=== PATIENT | female | born 1980 | race Caucasian/White ===

== ENCOUNTER 2022-06-01 09:40 | Emergency (ER) | payer SELFPAY ==
[2022-06-01] MEDS ORDERED: Sodium Chloride 0.9% 10 ML Syringe FLUSH PRN (11:44)
[2022-06-01] MEDS ORDERED: Sodium Chloride 0.9% 2.5 ML Syringe FLUSH PRN (11:44)
[2022-06-01] MEDS ORDERED: Sodium Chloride 0.9% 1,000 ML IV STA (13:52)
[2022-06-01 14:04] LABS: CARBON DIOXIDE,CO2 25.6 mmol/L (21.0-32.0); POTASSIUM,K 3.5 mmol/L (3.5-5.1)
== END 2022-06-01 15:26 | disposition home or self-care (01) ==
LOC: MW.ED 09:40 → MERGE 09:40 → MW.ED 15:26
DX: O20.9 Hemorrhage in early pregnancy, unspecified (principal); O98.819 Other maternal infectious and parasitic diseases complicating pregnancy, unspecified trimester; B37.31 Acute candidiasis of vulva and vagina; Z88.0 Allergy status to penicillin
CPT/HCPCS: 36415; 76801; 80053; 81001; 84702; 85025; 86900; 86901; 87480; 87510; 87660; 96360; 99284; J3490; J7030

== ENCOUNTER 2023-01-15 05:01 | Inpatient (IN) | payer SELFPAY ==
[2023-01-15] MEDS ORDERED: Sodium Chloride 0.9% 10 ML Syringe FLUSH PRN (05:11)
[2023-01-15] MEDS ORDERED: Carboprost Tromethamine 250 MCG/1 mL Vial IM PRN (05:11)
[2023-01-15] MEDS ORDERED: Water For Irrigation,Sterile 1,000 ML Container IRR PRN (05:11)
[2023-01-15] MEDS ORDERED: Sodium Chloride 0.9% 2.5 ML Syringe FLUSH PRN (05:11)
[2023-01-15] MEDS ORDERED: Methylergonovine 0.2 MG/1 ML Amp IM PRN (05:11)
[2023-01-15] MEDS ORDERED: Terbutaline 1 MG/ML SDV SUBCUT PRN (05:11)
[2023-01-15] MEDS ORDERED: Sodium Chloride 0.9% 20 ML SDV IV PRN (05:11)
[2023-01-15] MEDS ORDERED: Ondansetron 4 MG/2 ML SDV IVPUSH PRN (05:11)
[2023-01-15] MEDS ORDERED: Lidocaine 1% 50 ML MDV INJECT PRN (05:11)
[2023-01-15] MEDS ORDERED: Misoprostol 200 MCG Tab PO PRN (05:11)
[2023-01-15] MEDS ORDERED: Tranexamic Acid 1,000 MG in Sodium Chloride 0.9% 100 ML IV PRN (05:11)
[2023-01-15] MEDS ORDERED: Oxytocin/0.9 % Sodium Chloride 30 UNIT/500 ML BAG IV SCH ×2 (05:15)
[2023-01-15] MEDS: Lactated Ringers 1,000 ML IV SCH ×4 (06:00→23:06)
[2023-01-15] MEDS ORDERED: Butorphanol 1 MG/ML SDV IVPUSH PRN (06:05)
[2023-01-15] MEDS ORDERED: Nalbuphine HCl 10 MG/ 1ML Amp IVPUSH PRN (06:08)
[2023-01-15 06:13] LABS: HEMATOCRIT 38.7 % (36.0-46.0); HEMOGLOBIN 12.7 g/dL (12.0-16.0); MEAN CORPUSCULAR HEMOGLOBIN 28.3 pg (27.0-32.0); MEAN CORPUSCULAR HGB CONC 32.8 g/dL (31.0-37.0); MEAN CORPUSCULAR VOLUME 86.4 fL (80.0-98.0); MEAN PLATELET VOLUME 12.4 fL (7.40-12.00); RED BLOOD CELL COUNT 4.48 M/uL (4.30-5.90); WHITE BLOOD CELL COUNT,WBC 11.47 K/uL (4.0-11.0)
[2023-01-15] MEDS: Vancomycin 2 GM in Sodium Chloride 0.9% 500 ML IV SCH ×3 (06:34→23:07)
[2023-01-15] MEDS ORDERED: diphenhydrAMINE 50 MG/ML SDV IVPUSH ONE ×2 (08:26→14:25)
[2023-01-15] MEDS ORDERED: Ropivacaine/PF 400 MG/200 ML PCA ONE (11:00)
[2023-01-15] MEDS ORDERED: Bupivacaine 0.5% 10 ML SDV ONE ×2 (11:00→21:10)
[2023-01-15] MEDS ORDERED: ePHEDrine 50 MG/ML SDV IVPUSH PRN ×2 (11:34)
[2023-01-15] MEDS ORDERED: Phenylephrine HCl 0.5 MG/5 ML AMP IVPUSH PRN (11:34)
[2023-01-15] MEDS ORDERED: Ropivacaine HCl/PF 400 MG in Premix Bag 1 BAG EPIDUR SCH (11:45)
[2023-01-15] MEDS ORDERED: Vancomycin 1.25 GM SDV ONE (22:20)
[2023-01-16] MEDS ORDERED: Lanolin 100% Cream 7 GM Tube TOP PRN (03:40)
[2023-01-16] MEDS ORDERED: Acetaminophen 500 MG Tab PO PRN (03:40)
[2023-01-16] MEDS ORDERED: Witch Hazel Medicated Pads 40/Jar TOP PRN (03:40)
[2023-01-16] MEDS ORDERED: Benzocaine/Menthol 20%-0.5% Spray 78 GM Cannister TOP PRN (03:40)
[2023-01-16] MEDS ORDERED: Bisacodyl 10 MG Supp RECTAL PRN (03:40)
[2023-01-16] MEDS ORDERED: oxyCODONE 5 MG Tab PO PRN (03:40)
[2023-01-16] MEDS ORDERED: Ibuprofen 400 MG Tab PO PRN (03:40)
[2023-01-16] MEDS ORDERED: Docusate Sodium 100 MG Cap PO PRN (03:40)
[2023-01-16 04:17] LABS: PH,UMBILICAL ARTERIAL 7.263 (7.18-7.38); PH,UMBILICAL VENOUS 7.255 (7.25-7.45)
[2023-01-16] MEDS: Ibuprofen 800 MG Tab PO PRN ×3 (05:11→19:32)
[2023-01-16] MEDS: Acetaminophen 500 MG Tab PO PRN ×3 (05:12→21:59)
[2023-01-17] MEDS: Ibuprofen 800 MG Tab PO PRN ×3 (03:14→19:36)
[2023-01-17 06:00] LABS: HEMATOCRIT 32.8 % (36.0-46.0); HEMOGLOBIN 10.4 g/dL (12.0-16.0)
[2023-01-17 06:14] LABS: CALCIUM 8.4 mg/dL (8.5-10.1); CARBON DIOXIDE,CO2 23.7 mmol/L (21.0-32.0); CREATININE 1.5 mg/dL (0.6-1.0); EST CRCL DRUG DOSING (CG) 35.45 mL/min; POTASSIUM,K 4.7 mmol/L (3.5-5.1)
[2023-01-17] MEDS: Acetaminophen 500 MG Tab PO PRN ×2 (09:27→19:37)
[2023-01-18] MEDS: Acetaminophen 500 MG Tab PO PRN ×2 (04:51→13:00)
== END 2023-01-18 17:20 | disposition home or self-care (01) | DRG 807 ==
LOC: MW.OBCHECK 05:01 → MW.OB 05:12 → OBSVTOIN 01-16 03:12 → MW.OB 01-16 05:34
PROVIDERS: ADMIT Obstetrics & Gynecology; ATTEND Obstetrics & Gynecology
PROC: 10E0XZZ Delivery of Products of Conception, External Approach (ICD-10-PCS; principal; 2023-01-16)
PROC: 0HQ9XZZ Repair Perineum Skin, External Approach (ICD-10-PCS; 2023-01-16)
PROC: 3E0R3BZ Introduction of Anesthetic Agent into Spinal Canal, Percutaneous Approach (ICD-10-PCS; 2023-01-16)
PROC: 00HU33Z Insertion of Infusion Device into Spinal Canal, Percutaneous Approach (ICD-10-PCS; 2023-01-16)
PROC: 3E033VJ Introduction of Other Hormone into Peripheral Vein, Percutaneous Approach (ICD-10-PCS; 2023-01-16)
DX: O24.424 Gestational diabetes mellitus in childbirth, insulin controlled (principal); Z37.0 Single live birth; O70.0 First degree perineal laceration during delivery; O99.824 Streptococcus B carrier state complicating childbirth; Z3A.38 38 weeks gestation of pregnancy; Z79.4 Long term (current) use of insulin; Z90.49 Acquired absence of other specified parts of digestive tract; Z87.891 Personal history of nicotine dependence; Z88.0 Allergy status to penicillin
CPT/HCPCS: 36415; 51702; 59025; 59409; 80048; 82803; 82947; 85014; 85018; 85027; 86592; 86850; 86900; 86901; A9270-GY; J1200; J2300; J2590; J2795; J3370; J3490; J7040; J7120

== ENCOUNTER 2024-09-06 16:19 | Emergency (ER) | payer OTHER ==
[2024-09-06] MEDS ORDERED: Sodium Chloride 0.9% 10 ML Syringe FLUSH PRN (17:48)
[2024-09-06 18:32] LABS: BASOPHILS ABSOLUTE AUTO 0.04 K/uL (0.00-0.20); BASOPHILS PERCENT AUTO 0.2 % (0.0-1.0); EOSINOPHILS ABSOLUTE AUTO 0.22 K/uL (0.00-0.45); EOSINOPHILS PERCENT AUTO 1.4 % (0.0-6.0); HEMOGLOBIN 12.9 g/dL (12.0-16.0); IMMATURE GRAN ABSOLUTE AUTO 0.15 K/uL (0.00-0.05); IMMATURE GRAN PERCENT AUTO 0.9 % (0.0-0.4); LYMPHOCYTES ABSOLUTE AUTO 3.98 K/uL (1.00-4.80); LYMPHOCYTES PERCENT AUTO 24.7 % (24.0-44.0); MEAN CORPUSCULAR HEMOGLOBIN 28.6 pg (28.0-32.0); MEAN CORPUSCULAR HGB CONC 33.9 g/dL (32.0-36.0); MEAN CORPUSCULAR VOLUME 84.3 fL (83.0-99.0); MEAN PLATELET VOLUME 13.2 fL (9.4-12.3); MONOCYTES ABSOLUTE AUTO 0.95 K/uL (0.00-0.80); MONOCYTES PERCENT AUTO 5.9 % (0.0-8.0); NEUTROPHILS PERCENT AUTO 66.9 % (41.0-71.0); PLATELET COUNT,PLT 247 K/uL (150-400); RED BLOOD CELL COUNT 4.51 M/uL (4.10-5.30); WHITE BLOOD CELL COUNT,WBC 16.14 K/uL (3.9-11.3)
== END 2024-09-06 20:37 | disposition home or self-care (01) ==
LOC: MW.ED 16:19
DX: O9A.212 Injury, poisoning and certain other consequences of external causes complicating pregnancy, second trimester (principal); S30.1XXA Contusion of abdominal wall, initial encounter; Z79.899 Other long term (current) drug therapy; Z88.0 Allergy status to penicillin; Z3A.20 20 weeks gestation of pregnancy; V43.52XA Car driver injured in collision with other type car in traffic accident, initial encounter; Y92.410 Unspecified street and highway as the place of occurrence of the external cause
CPT/HCPCS: 36415; 76700; 76700-26; 76805; 76805-26; 85025; 86900; 86901; 99283; 99284

== ENCOUNTER 2025-01-10 01:28 | Inpatient (IN) | payer OTHER ==
[2025-01-10] MEDS ORDERED: Terbutaline 1 MG/ML SDV SUBCUT PRN (01:37)
[2025-01-10] MEDS ORDERED: Carboprost Tromethamine 250 MCG/1 mL Vial IM PRN (01:37)
[2025-01-10] MEDS ORDERED: Water For Irrigation,Sterile 1,000 ML Container IRR PRN (01:37)
[2025-01-10] MEDS ORDERED: Sodium Chloride 0.9% 10 ML Syringe FLUSH PRN (01:37)
[2025-01-10] MEDS ORDERED: Sodium Chloride 0.9% 2.5 ML Syringe FLUSH PRN (01:37)
[2025-01-10] MEDS ORDERED: Ondansetron 4 MG/2 ML SDV IVPUSH PRN (01:37)
[2025-01-10] MEDS ORDERED: Misoprostol 25 MCG (1/4 of 100 MCG) Tab VAG PRN (01:37)
[2025-01-10] MEDS ORDERED: Butorphanol 1 MG/ML SDV IVPUSH PRN (01:37)
[2025-01-10] MEDS ORDERED: Oxytocin/0.9 % Sodium Chloride 30 UNIT/500 ML BAG IV SCH (01:45)
[2025-01-10 02:42] LABS: MEAN PLATELET VOLUME 12.3 fL (9.4-12.3); NRBC ABSOLUTE 0.00 K/uL (0.00-0.02); NRBC PERCENT 0.0 /100WBC (0.0-0.2); PLATELET COUNT,PLT 225 K/uL (150-400); RED BLOOD CELL COUNT 4.51 M/uL (4.10-5.30); WHITE BLOOD CELL COUNT,WBC 15.05 K/uL (3.9-11.3)
[2025-01-10] MEDS: Misoprostol 25 MCG (1/4 of 100 MCG) Tab VAG PRN (03:02)
[2025-01-10] MEDS: Misoprostol 25 MCG (1/4 of 100 MCG) Tab PO PRN (03:02)
[2025-01-10 03:09] LABS: A/G RATIO 0.7 (0.9-1.6); ALANINE AMINOTRANSFERASE,ALT 20 IU/L (14-63); ASPARTATE AMNIOTRANSFERASE,AST 18 IU/L (15-37); BILIRUBIN TOTAL 0.7 mg/dL (0.2-1.0); BLOOD UREA NITROGEN,BUN 10 mg/dL (7.0-18.0); CARBON DIOXIDE,CO2 24.2 mmol/L (21.0-32.0); CHLORIDE,CL 102 mmol/L (98-107); CREATININE 0.7 mg/dL (0.6-1.0); ESTIMATED GFR 110 mL/min (>60); GLUCOSE RANDOM 201 mg/dL (74-106); POTASSIUM,K 3.9 mmol/L (3.5-5.1); PROTEIN TOTAL,TP 6.6 g/dL (6.4-8.2); SODIUM,NA 137 mmol/L (136-145)
[2025-01-10] MEDS: Lactated Ringers 1,000 ML IV SCH (07:48)
[2025-01-10] MEDS: Oxytocin/0.9 % Sodium Chloride 30 UNIT/500 ML BAG IV SCH (07:49)
[2025-01-10] MEDS ORDERED: Ropivacaine HCl/PF 200 ML ONE (08:48)
[2025-01-10] MEDS ORDERED: dexmedeTOMIDine HCl 200 MCG/2 ML SDV ONE (08:48)
[2025-01-10] MEDS ORDERED: ePHEDrine 50 MG/ML SDV IVPUSH PRN (09:12)
[2025-01-10] MEDS ORDERED: dexmedeTOMIDine HCl 200 MCG/2 ML SDV EPIDUR SCH (09:15)
[2025-01-10] MEDS ORDERED: fentaNYL 100 MCG/2 ML SDV ONE ×2 (10:09→12:11)
[2025-01-10] MEDS: Ropivacaine HCl/PF 400 MG in Premix Bag 1 BAG EPIDUR SCH (12:16)
[2025-01-10 13:47] LABS: PH,UMBILICAL ARTERIAL 7.19 (7.18-7.38)
[2025-01-10 13:48] LABS: PH,UMBILICAL VENOUS 7.29 (7.25-7.45)
[2025-01-10] MEDS: Benzocaine/Menthol 20%-0.5% Spray 78 GM Cannister TOP PRN (14:02)
[2025-01-10] MEDS: Lanolin 100% Cream 7 GM Tube TOP PRN (14:03)
[2025-01-10] MEDS: Witch Hazel Medicated Pads 40/Jar TOP PRN (14:03)
== END 2025-01-11 16:37 | disposition home or self-care (01) | DRG 807 ==
LOC: EEVIPCON → MW.OBCHECK 01:28 → OBSVTOIN 01:29 → MW.OB 01:29
PROVIDERS: ADMIT Obstetrics & Gynecology; ATTEND Obstetrics & Gynecology Obstetrics
PROC: 10D07Z6 Extraction of Products of Conception, Vacuum, Via Natural or Artificial Opening (ICD-10-PCS; principal; 2025-01-10)
PROC: 0KQM0ZZ Repair Perineum Muscle, Open Approach (ICD-10-PCS; 2025-01-10)
PROC: 3E0DXGC Introduction of Other Therapeutic Substance into Mouth and Pharynx, External Approach (ICD-10-PCS; 2025-01-10)
PROC: 3E033VJ Introduction of Other Hormone into Peripheral Vein, Percutaneous Approach (ICD-10-PCS; 2025-01-10)
PROC: 10907ZC Drainage of Amniotic Fluid, Therapeutic from Products of Conception, Via Natural or Artificial Opening (ICD-10-PCS; 2025-01-10)
PROC: 3E0R3BZ Introduction of Anesthetic Agent into Spinal Canal, Percutaneous Approach (ICD-10-PCS; 2025-01-10)
DX: O24.424 Gestational diabetes mellitus in childbirth, insulin controlled (principal); Z37.0 Single live birth; Z3A.38 38 weeks gestation of pregnancy; O69.1XX0 Labor and delivery complicated by cord around neck, with compression, not applicable or unspecified; O70.1 Second degree perineal laceration during delivery; Z88.0 Allergy status to penicillin; O99.02 Anemia complicating childbirth; Z90.49 Acquired absence of other specified parts of digestive tract; Z98.890 Other specified postprocedural states; Z79.4 Long term (current) use of insulin; Z79.899 Other long term (current) drug therapy; E55.9 Vitamin D deficiency, unspecified
CPT/HCPCS: 36415; 51702; 59025; 59409; 80053; 82803; 82947; 85014; 85018; 85027; 86592; 86850; 86900; 86901; A9270-GY; J0665; J2371; J2590; J2795; J3010; J7120